=== PATIENT | female | born 1995 | race Two or more races ===

== ENCOUNTER 2018-02-21 08:50 | Emergency (ER) | payer OTHER ==
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
[2018-02-21 11:07] LABS: ABSOLUTE EOSINOPHILS # (AUTO) 0.1 10^3/uL (0.0-0.6); ABSOLUTE LYMPHOCYTES (AUTO) 1.5 10^3/uL (0.5-4.7); ABSOLUTE MONOCYTES (AUTO) 0.7 10^3/uL (0.1-1.4); ABSOLUTE NEUT (AUTO) 8.4 10^3/uL (1.7-8.2); BASOPHILS % (AUTO) 0.3 % (0-2); EOSINOPHILS % (AUTO) 1.4 % (0-6); HEMATOCRIT 41.9 % (36.0-47.0); HEMOGLOBIN 14.5 g/dL (12.0-15.5); LYMPHOCYTES % (AUTO) 13.6 % (13-45); MEAN CORPUSCULAR HEMOGLOBIN 29.2 pg (27.0-33.4); MEAN CORPUSCULAR HGB CONC 34.5 g/dL (32.0-36.0); MEAN CORPUSCULAR VOLUME 85 fl (80-97); MONOCYTES % (AUTO) 6.5 % (3-13); PLATELET COUNT 325 10^3/uL (150-450); RED BLOOD COUNT 4.95 10^6/uL (3.72-5.28); RED CELL DISTRIBUTION WIDTH 12.4 % (11.5-14.0); SEGMENTED NEUTROPHILS % (AUTO) 78.2 % (42-78); TOTAL CELLS COUNTED % (AUTO) 100 %; WHITE BLOOD COUNT 10.7 10^3/uL (4.0-10.5)
[2018-02-21 11:25] LABS: APPEARANCE,URINE CLEAR; BILIRUBIN,URINE NEGATIVE (NEGATIVE); COLOR,URINE YELLOW; GLUCOSE, URINE NEGATIVE (NEGATIVE); KETONES,URINE NEGATIVE (NEGATIVE); LEUKOCYTE ESTERASE,URINE NEGATIVE (NEGATIVE); NITRITE,URINE NEGATIVE (NEGATIVE); PROTEIN,URINE NEGATIVE (NEGATIVE); URINE SPECIFIC GRAVITY 1.013; UROBILINOGEN,URINE NEGATIVE mg/dL (<2.0)
[2018-02-21 11:39] LABS: URINE AMPHETAMINES SCREEN NEGATIVE; URINE BARBITURATES SCREEN NEGATIVE; URINE BENZODIAZEPINES SCREEN UNCONFIRMED POSITIVE; URINE COCAINE SCREEN UNCONFIRMED POSITIVE; URINE MARIJUANA (THC) SCREEN UNCONFIRMED POSITIVE; URINE METHADONE SCREEN NEGATIVE; URINE PHENCYCLIDINE SCREEN NEGATIVE
[2018-02-21 12:01] LABS: ALANINE AMINOTRANSFERASE 27 U/L (9-52); ALBUMIN 4.7 g/dL (3.5-5.0); ALCOHOL 13 mg/dL (NONE DETECTED); ALKALINE PHOSPHATASE 71 U/L (38-126); ANION GAP 14 (5-19); ASPARTATE AMINO TRANSFERASE 29 U/L (14-36); BILIRUBIN,DIRECT 0.4 mg/dL (0.0-0.4); BILIRUBIN,TOTAL 1.1 mg/dL (0.2-1.3); BLOOD UREA NITROGEN 5 mg/dL (7-20); CALCIUM 9.8 mg/dL (8.4-10.2); CARBON DIOXIDE 24 mmol/L (22-30); CHLORIDE 107 mmol/L (98-107); GLUCOSE 100 mg/dL (75-110); LITHIUM 0.4 mEq/L (0.6-1.2); POTASSIUM 4.3 mmol/L (3.6-5.0); SODIUM 144.5 mmol/L (137-145)
[2018-02-21 12:03] LABS: ACETAMINOPHEN < 10 ug/mL (10-30); SALICYLATE < 1.0 mg/dL (2.0-20.0)
[2018-02-21] MEDS ORDERED: BUSPIRONE HCL 10 MG TABLET PO SCH (12:30)
[2018-02-21] MEDS ORDERED: OLANZAPINE 5 MG TABLET PO SCH (12:30)
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
[2018-02-21] MEDS ORDERED: DIVALPROEX SODIUM 250 MG TABLET.DR PO SCH ×2 (13:00→22:00)
[2018-02-21] MEDS ORDERED: DIVALPROEX SODIUM 250 MG TABLET.DR PO ONE (14:00)
[2018-02-21] MEDS ORDERED: BUSPIRONE HCL 10 MG TABLET PO ONE (14:00)
[2018-02-21] MEDS ORDERED: OLANZAPINE 5 MG TABLET PO ONE (14:00)
[2018-02-21] MEDS: DIVALPROEX SODIUM 250 MG TABLET.DR PO SCH (21:39)
[2018-02-21] MEDS: OLANZAPINE 5 MG TABLET PO SCH (21:41)
[2018-02-21] MEDS: BUSPIRONE HCL 10 MG TABLET PO SCH (21:42)
[2018-02-21] MEDS ORDERED: BENZTROPINE MESYLATE 1 MG TABLET PO SCH (22:00)
[2018-02-21] MEDS ORDERED: CLONIDINE HCL 0.1 MG TABLET PO SCH (22:00)
--- NOTE | 2018-02-22 00:54 | EKG REPORT ---
SEVERITY:- BORDERLINE ECG - SINUS RHYTHM BORDERLINE T ABNORMALITIES, INFERIOR LEADS : Confirmed by: Jumana Hanson MD 22-Feb-2018 00:53:39
--- NOTE | 2018-02-22 10:02 | ER Document Report ---
Doctor's Note Notes: 02/22/18 10:01 As the rounding physician for our psychiatric patients, I have reviewed the chart, vitals, lab work. Patient has been examined and noted to be stable, patient states she feels much better than yesterday. I am awaiting mental health in put. We did change her medications I believe plan to be discharged home with new medications
[2018-02-22] MEDS: OLANZAPINE 5 MG TABLET PO SCH (11:17)
[2018-02-22] MEDS: BUSPIRONE HCL 10 MG TABLET PO SCH (11:18)
[2018-02-22] MEDS: DIVALPROEX SODIUM 250 MG TABLET.DR PO SCH (11:18)
[2018-02-22 13:32] VITALS: BP 137/88
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
== END 2018-02-22 13:30 | disposition home or self-care (01) ==
LOC: ER 08:50
DX: F32.9 Major depressive disorder, single episode, unspecified (principal); F43.10 Post-traumatic stress disorder, unspecified; F14.90 Cocaine use, unspecified, uncomplicated; Z79.899 Other long term (current) drug therapy; Z72.89 Other problems related to lifestyle
CPT/HCPCS: 36415; 80053; 80178; 80307; 81001; 84703; 85025; 93005; 93010; 99285

== ENCOUNTER 2018-06-14 12:23 | Emergency (ER) | payer OTHER ==
[2018-06-14 12:31] VITALS: BP 139/103
[2018-06-14] MEDS ORDERED: LIDOCAINE 2% VISCOUS SOLN 20 ML UDCUP PO ONE (13:11)
[2018-06-14] MEDS ORDERED: METOCLOPRAMIDE HCL ORAL SOLN 10 MG/10 ML UDCUP PO ONE (13:12)
--- NOTE | 2018-06-14 13:14 | ER Document Report ---
ED Medical Screen (RME) - General Chief Complaint: Chest Pain Stated Complaint: CHEST PAIN,SHORT OF BREATH Time Seen by Provider: 06/14/18 13:06 Mode of Arrival: Ambulatory Information source: Patient Notes: Patient is a 23-year-old female who presents with chief complaint of chest pain , shortness of breath, dry mouth and nausea. She states that all of her symptoms started yesterday at 3 PM. She describes the pain as a sharp pain radiating in the epigastric area just below the sternal border and radiates to the right chest wall. Patient reports past medical history of bipolar, PTSD, anxiety and orthopedic injuries. Patient denies any cardiac history or respiratory history. Patient denies any history of DVT or PE. Patient denies the use of any oral contraceptives, recent travel and patient states she is a non-smoker. Exam: Lung sounds clear to auscultation bilaterally. Increased pain with palpation to the epigastric area as well as the right chest wall. I have greeted and performed a rapid initial assessment of this patient. A comprehensive ED assessment and evaluation of the patient, analysis of test results and completion of the medical decision making process will be conducted by additional ED providers. Dictation of this chart was performed using voice recognition software; therefore, there may be some unintended grammatical errors. TRAVEL OUTSIDE OF THE [place] IN LAST 30 DAYS: No - Related Data Allergies/Adverse Reactions: No Known Allergies Allergy (Verified 06/14/18 12:26) Past Medical History Renal/ Medical History: Denies: Hx Peritoneal Dialysis Psychiatric Medical History: Reports: Hx Bipolar Disorder, Hx Depression, Hx Post Traumatic Stress Disorder, Hx Schizophrenia Physical Exam - Vital signs Vitals: Temp Pulse Resp BP Pulse Ox 98.3 F 86 16 139/103 H 98 06/14/18 12:30 06/14/18 12:30 06/14/18 12:30 06/14/18 12:30 06/14/18 12:30 Course - Vital Signs Vital signs: Temp Pulse Resp BP Pulse Ox 98.3 F 86 16 139/103 H 98 06/14/18 12:30 06/14/18 12:30 06/14/18 12:30 06/14/18 12:30 06/14/18 12:30
--- NOTE | 2018-06-14 13:17 | EKG REPORT ---
SEVERITY:- BORDERLINE ECG - SINUS RHYTHM NONSPECIFIC ST-T CHANGES- INFERIOR LEADS : Confirmed by: John Judge MD 14-Jun-2018 13:16:45
--- NOTE | 2018-06-14 14:48 | RADIOLOGY REPORT (SQ) ---
EXAM DESCRIPTION: CHEST 2 VIEWS COMPLETED DATE/TIME: 06/14/2018 1:53 pm REASON FOR STUDY: chest pain COMPARISON: None. EXAM PARAMETERS: NUMBER OF VIEWS: two views TECHNIQUE: Digital Frontal and Lateral radiographic views of the chest acquired. RADIATION DOSE: NA LIMITATIONS: none FINDINGS: LUNGS AND PLEURA: No opacities, masses or pneumothorax. No pleural effusion. MEDIASTINUM AND HILAR STRUCTURES: No masses or contour abnormalities. HEART AND VASCULAR STRUCTURES: Heart normal size. No evidence for failure. BONES: No acute findings. HARDWARE: None in the chest. OTHER: No other significant finding. IMPRESSION: NO ACUTE RADIOGRAPHIC FINDING IN THE CHEST. TECHNICAL DOCUMENTATION: JOB ID: [id number] [employer]- All Rights Reserved Reading location - IP/workstation name: [email or web address]
== END 2018-06-14 15:30 | disposition left against medical advice (07) ==
LOC: ER 12:23 → EDBD 12:23 → ER 15:30
DX: Z53.21 Procedure and treatment not carried out due to patient leaving prior to being seen by health care provider (principal); R07.9 Chest pain, unspecified; R06.02 Shortness of breath; R68.2 Dry mouth, unspecified; R11.0 Nausea; R10.13 Epigastric pain; R07.89 Other chest pain
CPT/HCPCS: 93005; 99281; 71046; 93010; J3490

== ENCOUNTER 2018-06-22 12:11 | Emergency (ER) | payer OTHER ==
--- NOTE | 2018-06-22 13:44 | ER Document Report ---
ED General - General Chief Complaint: Chest Pain Stated Complaint: CHEST TIGHTNESS Time Seen by Provider: 06/22/18 13:30 Notes: Patient is a 23-year-old female that presents to the emergency department for chief complaint of parasternal chest pain. Patient states that she is been having chest pain for over a week, she describes it as along the breastbone, she thinks the pain is worse with a deep breath occasionally, worse when she pushes on the area. She currently rates the pain as a 5 out of 10. She was seen and had an EKG and chest x-ray that were negative according to her about a week ago, she was then seen at the [place], and they told her it was "chest wall pain " she still wanted to be reevaluated, to make sure everything was okay so she came back to the emergency department. She denies any associated fevers, chills , night sweats, nausea, cough, difficulty breathing, shortness of breath, or abdominal pain. Past Medical History: Bipolar disorder, PTSD, anxiety Past Surgical History: Denies surgical history Social History: Denies tobacco, alcohol or illicit drug use Family History: Reviewed and noncontributory for presenting illness Allergies: Reviewed, see documented allergy list. REVIEW OF SYSTEMS: Other than noted above, the 12 point review of systems was reviewed with the patient and were negative, all pertinent findings are included in the HPI. PHYSICAL EXAMINATION: Vital signs reviewed, nursing noted reviewed. GENERAL: Well-appearing, well-nourished and in no acute distress. HEAD: Atraumatic, normocephalic. EYES: Eyes appear normal, extraocular movements intact, sclera anicteric, conjunctiva are normal. ENT: nares patent, oropharynx clear without exudates. Moist mucous membranes. NECK: Normal range of motion, supple without lymphadenopathy LUNGS: Breath sounds clear to auscultation bilaterally and equal. No wheezes rales or rhonchi. Reproducible parasternal bilateral chest wall tenderness with palpation HEART: Regular rate and rhythm without murmurs ABDOMEN: Soft, nontender, normoactive bowel sounds. No rebound, guarding, or rigidity. No masses appreciated. EXTREMITIES: Nontender, good range of motion, no pitting or edema. NEUROLOGICAL: No focal neurological deficits. Moves all extremities spontaneously Motor and sensory grossly intact on exam. PSYCH: Normal mood, normal affect. SKIN: Warm, Dry, normal turgor, no rashes or lesions noted on exposed skin TRAVEL OUTSIDE OF THE [place] IN LAST 30 DAYS: No - Related Data Allergies/Adverse Reactions: No Known Allergies Allergy (Verified 06/22/18 12:16) Past Medical History - Social History Smoking Status: Never Smoker Frequency of alcohol use: None Drug Abuse: None Family History: Reviewed & Not Pertinent Patient has suicidal ideation: No Patient has homicidal ideation: No Renal/ Medical History: Denies: Hx Peritoneal Dialysis Psychiatric Medical History: Reports: Hx Bipolar Disorder, Hx Depression, Hx Post Traumatic Stress Disorder, Hx Schizophrenia Physical Exam - Vital signs Vitals: Temp Pulse BP Pulse Ox 98.5 F 65 113/79 99 06/22/18 12:28 06/22/18 12:28 06/22/18 12:28 06/22/18 12:28 Course - Re-evaluation Re-evalutation: Patient seen and examined, vital signs reviewed, prior chart reviewed, chest x- ray negative from her last visit from 06/14/2018, her EKG was read and unchanged from that visit. Patient does have reproducible chest wall tenderness on exam, at the costal sternal junction, suspect costochondritis, [facility] Will prescribe her meloxicam, she did not want to take naproxen, or ibuprofen. And [facility]. Patient was agreeable to this plan of care and discharged home. - Vital Signs Vital signs: Temp Pulse Resp BP Pulse Ox 98.6 F 72 18 122/80 99 06/22/18 13:46 06/22/18 13:46 06/22/18 13:46 06/22/18 13:46 06/22/18 13:46 - EKG Interpretation by Me Additional EKG results interpreted by me: EKG demonstrates sinus rhythm with a ventricular rate of 67 bpm, normal axis, normal intervals, there is no evidence of acute ischemia on this EKG, this is compared with prior EKG from 06/14/2018, without significant change. Discharge - Discharge Clinical Impression: Chest pain Qualifiers: Chest pain type: unspecified Qualified Code(s): R07.9 - Chest pain, unspecified Condition: Stable Disposition: HOME, SELF-CARE Instructions: Chest Wall Pain ([facility]), Chest Pain of Unclear Cause ([facility]) Additional Instructions: [facility], if you have any worsening her symptoms, or changes in his symptoms, do not hesitate to return to the emergency department to be reevaluated. Prescriptions: Meloxicam [Mobic] 15 mg PO DAILY #14 tablet Referrals: [facility] [Provider Group] - Follow up as needed
[2018-06-22 13:46] VITALS: BP 122/80
--- NOTE | 2018-06-23 07:23 | EKG REPORT ---
SEVERITY:- NORMAL ECG - SINUS RHYTHM : Confirmed by: Isabelle Lucas 23-Jun-2018 07:22:53
== END 2018-06-22 13:46 | disposition home or self-care (01) ==
LOC: ER 12:11
DX: R07.89 Other chest pain (principal)
CPT/HCPCS: 93005; 93010; 99284

== ENCOUNTER 2019-04-25 20:45 | Emergency (ER) | payer OTHER ==
[2019-04-25 21:12] VITALS: BP 143/96
== END 2019-04-25 23:57 | disposition left against medical advice (07) ==
LOC: ER 20:45
DX: Z53.21 Procedure and treatment not carried out due to patient leaving prior to being seen by health care provider (principal)

== ENCOUNTER 2019-12-08 18:40 | Emergency (ER) | payer OTHER ==
[2019-12-08] MEDS ORDERED: NORMAL SALINE 1000 ML 1,000 ML IV ONE (20:00)
[2019-12-08] MEDS ORDERED: MORPHINE SULFATE 10 MG/ML INJ IV ONE (20:00)
[2019-12-08] MEDS ORDERED: ONDANSETRON HCL INJ/PF 4 MG/2 ML SDV IV ONE (20:00)
--- NOTE | 2019-12-08 20:00 | ER Document Report ---
ED Medical Screen (RME) - General Chief Complaint: Abdominal Pain Stated Complaint: ABDOMINAL PAIN Time Seen by Provider: 12/08/19 19:53 Primary Care Provider: AMY NAVA MD [Primary Care Provider] - Follow up as needed Mode of Arrival: Ambulatory Information source: Patient Notes: 24-year-old female presented to ED for complaint of sharp abdominal pain to the right lower quadrant starting this morning. She states she saw her PCM about 5 PM and she told her that she did some tests that showed she might have appendicitis. She is alert oriented respirations regular nonlabored speaking in full sentences. Patient states she has not had any fever she has had some nausea but no vomiting. She states her last menstrual cycle started on November 29. This is 99 blood pressure is elevated. She states is because she is in so much pain. I have greeted and performed a rapid initial assessment of this patient. A comprehensive ED assessment and evaluation of the patient, analysis of test results and completion of medical decision making process will be conducted by an additional ED providers. TRAVEL OUTSIDE OF THE [place] IN LAST 30 DAYS: No - Related Data Allergies/Adverse Reactions: No Known Allergies Allergy (Verified 04/25/19 20:48) Past Medical History Renal/ Medical History: Denies: Hx Peritoneal Dialysis Psychiatric Medical History: Reports: Hx Bipolar Disorder, Hx Depression, Hx Post Traumatic Stress Disorder, Hx Schizophrenia Physical Exam - Vital signs Vitals: Temp Pulse Resp BP Pulse Ox 97.9 F 113 H 18 142/90 H 99 12/08/19 18:43 12/08/19 18:43 12/08/19 18:43 12/08/19 18:43 12/08/19 18:43 Course - Vital Signs Vital signs: Temp Pulse Resp BP Pulse Ox 97.9 F 113 H 18 142/90 H 99 12/08/19 18:43 12/08/19 18:43 12/08/19 18:43 12/08/19 18:43 12/08/19 18:43 Doctor's Discharge - Discharge Referrals: AMY NAVA MD [Primary Care Provider] - Follow up as needed
--- NOTE | 2019-12-08 21:23 | RADIOLOGY REPORT (SQ) ---
EXAM DESCRIPTION: US PELVIS TRANSVAGINAL COMPLETED DATE/TME: 12/08/2019 19:54 CLINICAL HISTORY: 24 years Female Right lower quadrant/pelvic pain COMPARISON: None. TECHNIQUE: Transvaginal duplex imaging performed to evaluate the pelvis. FINDINGS: IUD in the uterus. The IUD appears to be located in the appropriate position toward the fundus. Endometrium measures 7 mm. Cervix measures 2.8 cm. Right ovary measures 2 x 1.4 x 3.5 cm with normal blood flow. No abnormalities noted in the right lower quadrant in the region of the patient's pain. Left ovary is obscured by bowel gas. No free fluid. IMPRESSION: No evidence of acute process IUD in the uterus
[2019-12-08 21:38] LABS: ABSOLUTE BASOPHILS # (AUTO) 0.1 10^3/uL (0.0-0.2); ABSOLUTE EOSINOPHILS # (AUTO) 0.1 10^3/uL (0.0-0.6); ABSOLUTE LYMPHOCYTES (AUTO) 2.5 10^3/uL (0.5-4.7); ABSOLUTE MONOCYTES (AUTO) 0.6 10^3/uL (0.1-1.4); ABSOLUTE NEUT (AUTO) 6.2 10^3/uL (1.7-8.2); BASOPHILS % (AUTO) 0.6 % (0-2); EOSINOPHILS % (AUTO) 1.4 % (0-6); HEMOGLOBIN 14.7 g/dL (12.0-15.5); LYMPHOCYTES % (AUTO) 26.5 % (13-45); MEAN CORPUSCULAR HEMOGLOBIN 29.8 pg (27.0-33.4); MEAN CORPUSCULAR VOLUME 85 fl (80-97); MONOCYTES % (AUTO) 6.8 % (3-13); PLATELET COUNT 320 10^3/uL (150-450); RED BLOOD COUNT 4.92 10^6/uL (3.72-5.28); RED CELL DISTRIBUTION WIDTH 12.7 % (11.5-14.0); SEGMENTED NEUTROPHILS % (AUTO) 64.7 % (42-78); TOTAL CELLS COUNTED % (AUTO) 100 %; WHITE BLOOD COUNT 9.6 10^3/uL (4.0-10.5)
[2019-12-08 21:49] LABS: APPEARANCE,URINE CLEAR; BILIRUBIN,URINE NEGATIVE (NEGATIVE); COLOR,URINE STRAW; GLUCOSE, URINE NEGATIVE (NEGATIVE); KETONES,URINE NEGATIVE (NEGATIVE); PROTEIN,URINE NEGATIVE (NEGATIVE); URINE SPECIFIC GRAVITY 1.004; UROBILINOGEN,URINE NEGATIVE mg/dL (<2.0)
[2019-12-08 22:02] LABS: ALBUMIN 4.8 g/dL (3.5-5.0); ALKALINE PHOSPHATASE 76 U/L (38-126); ANION GAP 10 (5-19); ASPARTATE AMINO TRANSFERASE 20 U/L (14-36); BILIRUBIN,TOTAL 0.6 mg/dL (0.2-1.3); BLOOD UREA NITROGEN 5 mg/dL (7-20); CALCIUM 10.1 mg/dL (8.4-10.2); CARBON DIOXIDE 27 mmol/L (22-30); CHLORIDE 100 mmol/L (98-107); GLUCOSE 96 mg/dL (75-110); POTASSIUM 4.1 mmol/L (3.6-5.0); TOTAL PROTEIN 8.2 g/dL (6.3-8.2)
--- NOTE | 2019-12-08 22:17 | ER Document Report ---
ED GI/ - General Chief Complaint: Abdominal Pain Stated Complaint: ABDOMINAL PAIN Time Seen by Provider: 12/08/19 19:53 Primary Care Provider: MAY NAVA MD [Primary Care Provider] - Follow up tomorrow (Call your primary care physician for follow-up appointment tomorrow.) Mode of Arrival: Ambulatory Notes: 24-year-old female with a past medical history significant for PTSD, schizophren ia, chronic pain presents to the emergency room complaining of abdominal pain which she describes as sharp around her umbilicus that started earlier this morning. States it started going into her right lower quadrant with cramping. She saw her primary care physician who evaluated her and sent her to the ER to rule out appendicitis. Patient complains of nausea but no vomiting, denies fevers. Denies any urinary symptoms. States she took Pepto-Bismol without relief. TRAVEL OUTSIDE OF THE [place] IN LAST 30 DAYS: No - Related Data Allergies/Adverse Reactions: No Known Allergies Allergy (Verified 04/25/19 20:48) Past Medical History - General Information source: Patient - Social History Smoking Status: Never Smoker Frequency of alcohol use: None Drug Abuse: None Lives with: Family Family History: Reviewed & Not Pertinent Patient has homicidal ideation: No Renal/ Medical History: Denies: Hx Peritoneal Dialysis Musculoskeletal Medical History: Reports Other - Chronic pain Psychiatric Medical History: Reports: Hx Bipolar Disorder, Hx Depression, Hx Post Traumatic Stress Disorder, Hx Schizophrenia Review of Systems - Review of Systems Constitutional: No symptoms reported EENT: No symptoms reported Cardiovascular: No symptoms reported Respiratory: No symptoms reported Gastrointestinal: Abdominal pain, Nausea. denies: Diarrhea, Vomiting Genitourinary: No symptoms reported Musculoskeletal: No symptoms reported Neurological/Psychological: No symptoms reported -: Yes All other systems reviewed and negative Physical Exam - Vital signs Vitals: Temp Pulse Resp BP Pulse Ox 97.9 F 113 H 18 142/90 H 99 12/08/19 18:43 12/08/19 18:43 12/08/19 18:43 12/08/19 18:43 12/08/19 18:43 - General General appearance: Appears well, Alert In distress: Mild - HEENT Head: Normocephalic, Atraumatic Eyes: Normal Pupils: PERRL - Respiratory Respiratory status: No respiratory distress Chest status: Nontender Breath sounds: Normal Chest palpation: Normal - Cardiovascular Rhythm: Tachycardia Heart sounds: Normal auscultation Murmur: No - Abdominal Inspection: Normal Distension: No distension Bowel sounds: Normal Tenderness: Tender - There is tenderness on palpation to the right lower quadrant, no guarding, no rebound,. No: McBurney's point, Thomas's sign, Guarding, Rebound Organomegaly: No organomegaly - Neurological Neuro grossly intact: Yes Cognition: Normal Orientation: AAOx4 Alec Coma Scale Eye Opening: Spontaneous [place] Coma Scale Verbal: Oriented [place] Coma Scale Motor: Obeys Commands [place] Coma Scale Total: 15 Speech: Normal Motor strength normal: LUE, RUE, LLE, RLE Sensory: Normal - Skin Skin Temperature: Warm Skin Moisture: Dry Skin Color: Normal Course - Re-evaluation Re-evalutation: 12/08/19 22:12 Patient is resting continues to complain of pain. Reviewed lab and ultrasound results with patient. Patient was referred to the emergency room by her primary care physician to rule out appendicitis. Discussed with patient that she would need a CAT scan to rule out appendicitis. Patient with persistent pain. Sade ent does not want to stay any longer in the emergency room for CAT scan. She has requested to sign out AGAINST MEDICAL ADVICE. She was counseled on the risks and benefits of leaving AGAINST MEDICAL ADVICE including but not limited to loss of life, worsening condition, chronic pain, reproductive dysfunction., Gastrointestinal dysfunction permanent disability, urinary dysfunction, patient was given strict return to the emergency room guidelines. To include but not limited to worsening pain, fever, nausea, vomiting, recommend outpatient follow- up with her primary care physician tomorrow. She was given strict return to the emergency room guidelines. All questions were answered. Patient verbalized understanding and agrees with plan of care. - Vital Signs Vital signs: Temp Pulse Resp BP Pulse Ox 98.0 F 89 18 140/98 H 100 12/08/19 22:20 12/08/19 22:20 12/08/19 22:20 12/08/19 22:20 12/08/19 22:20 - Laboratory Result Diagrams: 12/08/19 21:20 12/08/19 21:20 Laboratory results interpreted by me: 12/08/19 21:20 BUN 5 L Discharge - Discharge Clinical Impression: Left against medical advice Abdominal pain Qualifiers: Abdominal location: right lower quadrant Qualified Code(s): R10.31 - Right l ower quadrant pain Condition: Stable Disposition: AGAINST MEDICAL ADVICE Instructions: Abdominal Pain ([facility]), Observation for Appendicitis ([facility]) Additional Instructions: You have chosen to leave AGAINST MEDICAL ADVICE. You are counseled against the risks and benefits including but not limited to loss of life, worsening condition, chronic pain, respiratory dysfunction, gastrointestinal dysfunction, reproductive dysfunction. Loss of current lifestyle. Follow-up with your primary care physician tomorrow. Return for any new or worsening symptoms. Referrals: AMY NAVA MD [Primary Care Provider] - Follow up tomorrow (Call your primary care physician for follow-up appointment tomorrow.)
[2019-12-08 22:24] VITALS: BP 140/98
== END 2019-12-08 22:20 | disposition left against medical advice (07) ==
LOC: ER 18:40
DX: Z53.21 Procedure and treatment not carried out due to patient leaving prior to being seen by health care provider (principal); R10.31 Right lower quadrant pain; R10.9 Unspecified abdominal pain; R10.33 Periumbilical pain; R11.0 Nausea
CPT/HCPCS: 99284; 96374; 96375; 36415; 84702; 83690; 85025; 80053; 81001; 76830; J2270; J2405; J7030; 96361